=== PATIENT | male | born 1995 | race Caucasian/White ===

== ENCOUNTER → 2022-03-13 16:40 | Outpatient (BNVA) | payer OTHER, SELFPAY | PROVIDERS: Visit Provider Internal Medicine Pulmonary Disease | DX: J45.909 Unspecified asthma, uncomplicated (principal); R06.02 Shortness of breath | CPT/HCPCS: 36415; 82785; 85025; 86003 ==

== ENCOUNTER 2022-06-06 13:39 | Outpatient (CLI) | payer OTHER, SELFPAY ==
--- NOTE | 2022-06-06 08:47 | PFTS_ITS ---
Date of Study:06/07/22 Date of Dictation: MECHANICS: Forced vital capacity (FVC) is . Forced expiratory volume in one second (FEV1) is . FEV1/FVC is . FLOW VOLUME LOOP: . LUNG VOLUMES: Total lung capacity (TLC) is . Residual volume (RV) is . DIFFUSING CAPACITY FOR CARBON MONOXIDE: . INTERPRETATION: The pulmonary function tests are . mechanics and lung volumes. Gas exchange (DLCO) is . MTDD
== END 2022-06-06 13:40 | disposition home or self-care (01) ==
LOC: RT 13:40
PROVIDERS: Visit Provider Internal Medicine Pulmonary Disease
DX: J45.909 Unspecified asthma, uncomplicated (principal)
CPT/HCPCS: 94010; 94726; 94729

== ENCOUNTER → 2022-06-29 12:33 | Outpatient (BNVA) | payer OTHER, SELFPAY | PROVIDERS: PCP Family Medicine; Visit Provider Internal Medicine Pulmonary Disease | DX: J45.909 Unspecified asthma, uncomplicated (principal) | CPT/HCPCS: 85025 ==

== ENCOUNTER 2022-11-18 22:51 | Emergency (ER) | payer OTHER, SELFPAY ==
[2022-11-18 22:55] VITALS: BMI 29.5
--- NOTE | 2022-11-18 22:57 | XRR_ITS ---
PROCEDURE INFORMATION: Exam: XR Chest Exam date and time: 11/18/2022 11:15 PM Age: 27 years old Clinical indication: Other: Asthma TECHNIQUE: Imaging protocol: Radiologic exam of the chest. Views: 1 view. COMPARISON: No relevant prior studies available. FINDINGS: Lungs: Unremarkable. No consolidation. Pleural spaces: Unremarkable. No pleural effusion. No pneumothorax. Heart/Mediastinum: Unremarkable. No cardiomegaly. Bones/joints: Possible old left distal clavicle deformity. XR/XR chest 1V portable [id number] IMPRESSION: No acute findings.
--- NOTE | 2022-11-18 23:00 | W.ED.ASTHMA ---
Documented by User: SKYLER Marquez 11/19/22 00:15 HPI - Asthma General: Chief Complaint: Asthma Stated Complaint: asthma attack Time Seen by Provider: 11/18/22 22:52 History of Present Illness: 27-year-old male patient comes in today with complaints of shortness of breath. Patient was brought in by EMS and had been given DuoNeb x1 and 180 mg of Solu-Medrol. Patient was concerned due to some irritation of the throat and EMS was called. Patient recently started some Xolair treatment for every 2 weeks and was concerned he may be having a reaction to it. Associated symptoms: Deny fever(s) Review of Systems Const: Denies: fever(s) Resp: Reports: dyspnea [facility] PFSH: Medical History Asthma Family History Father Marfan syndrome Mother Asthma Social History Smoking and tobacco status: never smoked Second hand smoke exposure: Yes (brother in law) Physical Exam Const: COMMON NORMALS: alert HENMT: COMMON NORMALS: normocephalic HEAD & SCALP: normocephalic NOSE: Nasal discharge present THROAT: posterior oropharynx normal Neck/C-Spine: COMMON NORMALS: full ROM Resp: AUSCULTATION: diminished lung sounds Cardio: COMMON NORMALS: regular rate and regular rhythm RATE: regular rate RHYTHM: regular rhythm GI: COMMON NORMALS: non-tender Extremity: COMMON NORMALS: no pedal edema Neuro: SENSORIUM/ORIENTATION: Yes alert Skin: COMMON NORMALS: turgor normal GENERAL SKIN EXAM: turgor normal Course ED course: 1210, patient had significant improvement of symptoms. Lungs remain clear to auscultation. Nasal drainage and congestion was resolved. Patient reported feeling 100% better. Patient will be continued on prednisone and recommended to use diphenhydramine as needed for nasal drainage or congestion. Believe patient probably had asthma exacerbation due to a upper respiratory infection. Vital Signs: Vital signs: Vital Signs Pulse Rate 81 11/19/22 00:12 Respiratory Rate 21 H 11/19/22 00:12 Blood Pressure 106/50 11/19/22 00:12 Pulse Oximetry 96 11/19/22 00:12 Oxygen Delivery Me thod 11/18/22 23:20 MDM - Asthma Medical Decision Making 27-year-old male patient comes in today for concerns of asthma attack or allergic reaction. On exam patient had no wheezing in lung estevez, patient had significant amount of drainage in the nose. Posterior pharynx is open without any swelling or abnormality. Skin was warm and dry. Vital signs were normal except for some elevation in blood pressure. Differential diagnosis includes allergic reaction, asthma attack, respiratory failure. Patient improved with medical treatment in the emergency department. Reviewed exam with patient and family recommendations for continued treatment with oral prednisone and diphenhydramine. Family reported understanding and agreed to plan for treatment of URI and asthma exacerbation. Lab Data 11/18/22 23:00 11/18/22 23:00 Radiology Impressions Chest X-Ray 11/18/22 22:57 IMPRESSION: No acute findings. Laboratory Results WBC 9.1 10^3/uL (4.0-10.0) 11/18/22 23:00 RBC 4.67 10^6/uL (4.1-5.3) 11/18/22 23:00 Hgb 13.8 g/dL (11.7-16.6) 11/18/22 23:00 Hct 39.9 % (42.0-52.0) L 11/18/22 23:00 MCV 85.4 fl (80-94) 11/18/22 23:00 MCH 29.6 pg (28.0-34.0) 11/18/22 23: MCHC 34.6 g/dL (30.0-36.0) 11/18/22 23: RDW 11.3 % (12.1-15.1) L 11/18/22 23:00 Plt Count 317 10^3/cmm (130-400) 11/18/22 23:00 MPV 9.4 fL (7.4-10.4) 11/18/22 23:00 Neut % (Auto) 45.7 % 11/18/22 23:00 Lymph % (Auto) 38.7 % 11/18/22 23: Wayne % (Auto) 12.3 % 11/18/22 23:00 Eos % (Auto) 2.8 % 11/18/22 23:00 Baso % (Auto) 0.1 % 11/18/22 23:00 Neut # (Auto) 4.14 10^3/uL (1.8-7.7) 11/18/22 23:00 Lymph # (Auto) 3.5 10^3/uL (0.8-4.8) 11/18/22 23:00 Wayne # (Auto) 1.1 10^3/uL (0.2-0.9) H 11/18/22 23:00 Eos # (Auto) 0.3 10^3/uL (0.0-0.8) 11/18/22 23:00 Baso # (Auto) 0.0 10^3/uL (0.0-0.1) 11/18/22 23:00 Nucleated RBC % (auto) 0 % 11/18/22 23:00 Nucleated RBCs # 0.0 /100WBC 11/18/22 23:00 Sodium 133 mmol/L (136-145) L 11/18/22 23:00 Potassium 3.4 mmol/L (3.5-5.1) L 11/18/22 23:00 Chloride 98 mmol/L (98-107) 11/18/22 23:00 Carbon Dioxide 24 mmol/L (22-29) 11/18/22 23:00 Anion Gap 14.4 (5-19) 11/18/22 23:00 BUN 7 mg/dL (6-20) 11/18/22 23:00 Creatinine 0.9 mg/dL (0.7-1.2) 11/18/22 23:00 GFR Calculation 102.8 mL/min (90-130) 11/18/22 23:00 Glucose 105 mg/dL (65-115) 11/18/22 23:00 Calculated Osmolality 274 mOsm/kg (285-295) L 11/18/22 23:00 Calcium 9.3 mg/dL (8.5-10.5) 11/18/22 23:00 Total Bilirubin 0.3 mg/dL (0.15-1.2) 11/18/22 23:00 AST 22 U/L (0-40) 11/18/22 23:00 ALT 21 U/L (0-41) 11/18/22 23:00 Alkaline Phosphatase 86 U/L (40-130) 11/18/22 23:00 Total Protein 7.6 g/dL (6.6-8.7) 11/18/22 23:00 Albumin 4.5 g/dL (3.5-5.2) 11/18/22 23:00 Globulin 3.1 g/dL (1.3-4.6) 11/18/22 23:00 Discharge Plan Discharge Patient Disposition: Home Clinical Impression: Asthma with acute exacerbation URI (upper respiratory infection) Qualifiers: URI type: unspecified URI Qualified Code(s): J06.9 - Acute upper respiratory infection, unspecified Condition: Stable Prescriptions: New prednisone 20 mg tablet 40 mg PO DAILY Qty: 10 0RF No Action levalbuterol tartrate [Xopenex HFA] 45 mcg/actuation HFA aerosol inhaler 2 inh inhalation Q6H montelukast [Singulair] 10 mg tablet 10 mg PO DAILY fexofenadine [Devika Allergy] 60 mg tablet 60 mg PO BID trazodone 50 mg tablet 50 mg PO DAILY triamcinolone acetonide 0.1 % cream 1 applic topical DAILY Qty: 30 0RF nystatin 100,000 unit/gram cream 1 applic topical DAILY Qty: 30 0RF cetirizine 10 mg tablet 10 mg PO DAILY PRN Xolair 150 mg/mL syringe 225 mg SUBCUT .every 2 weeks Qty: 1 0RF levalbuterol HCl [Xopenex] 0.63 mg/3 mL solution for nebulization 0.63 mg inhalation TID Qty: 72 2RF epinephrine [EpiPen] 0.3 mg/0.3 mL auto-injector 0.3 mg IM Q4H PRN (Reason: anaphylaxis) Qty: 2 2RF Breztri Aerosphere 160-9-4.8 mcg/actuation HFA aerosol inhaler 2 inh inhalation BID Qty: 10.7 5RF Discharge Orders: Discharge ED (Routine); Ordered 11/19/22 Ordered By: Walter Champion Referrals: Antonella Oliveira DO [Primary Care Provider] - Discharge Diet: Usual diet Discharge Activity: Increase activity as tolerated Patient Instructions: Asthma (ED) Activity Restrictions/Additional Instructions: Home and rest. Continue routine care. Take prednisone 40 mg daily for the next 5 days. Use Benadryl as needed for nasal congestion and drainage. Drink plenty of water with medications. Follow-up with primary care in 2 days for recheck. Return to ED for new concerns or worsening symptoms. 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 Comprehensive Documented by User: Vidal Escobedo DO 11/19/22 01:08 HPI - Asthma General: Chief Complaint: Asthma Stated Complaint: asthma attack Time Seen by Provider: 11/18/22 22:52 [facility] PFSH: Medical History Asthma Family History Father Marfan syndrome Mother Asthma Social History Smoking and tobacco status: never smoked Second hand smoke exposure: Yes (brother in law) Course Vital Signs: Vital signs: Vital Signs Pulse Rate 81 11/19/22 00:12 Respiratory Rate 21 H 11/19/22 00:12 Blood Pressure 106/50 11/19/22 00:12 Pulse Oximetry 96 11/19/22 00:12 Oxygen Delivery Me thod 11/18/22 23:20 MDM - Asthma Medical Decision Making 27-year-old male patient comes in today for concerns of asthma attack or allergic reaction. On exam patient had no wheezing in lung estevez, patient had significant amount of drainage in the nose. Posterior pharynx is open without any swelling or abnormality. Skin was warm and dry. Vital signs were normal except for some elevation in blood pressure. Differential diagnosis includes allergic reaction, asthma attack, respiratory failure. Patient improved with medical treatment in the emergency department. Reviewed exam with patient and family recommendations for continued treatment with oral prednisone and diphenhydramine. Family reported understanding and agreed to plan for treatment of URI and asthma exacerbation. This patient was originally seen by SKYLER Bobby. I agree with his history, evaluation, and treatment. Lab Data 11/18/22 23:00 11/18/22 23:00 Radiology Impressions Chest X-Ray 11/18/22 22:57 IMPRESSION: No acute findings. Laboratory Results WBC 9.1 10^3/uL (4.0-10.0) 11/18/22 23:00 RBC 4.67 10^6/uL (4.1-5.3) 11/18/22 23:00 Hgb 13.8 g/dL (11.7-16.6) 11/18/22 23:00 Hct 39.9 % (42.0-52.0) L 11/18/22 23:00 MCV 85.4 fl (80-94) 11/18/22 23:00 MCH 29.6 pg (28.0-34.0) 11/18/22 23: MCHC 34.6 g/dL (30.0-36.0) 11/18/22 23:00 RDW 11.3 % (12.1-15.1) L 11/18/22 23:00 Plt Count 317 10^3/cmm (130-400) 11/18/22 23:00 MPV 9.4 fL (7.4-10.4) 11/18/22 23:00 Neut % (Auto) 45.7 % 11/18/22 23:00 Lymph % (Auto) 38.7 % 11/18/22 23:00 Wayne % (Auto) 12.3 % 11/18/22 23:00 Eos % (Auto) 2.8 % 11/18/22 23:00 Baso % (Auto) 0.1 % 11/18/22 23:00 Neut # (Auto) 4.14 10^3/uL (1.8-7.7) 11/18/22 23:00 Lymph # (Auto) 3.5 10^3/uL (0.8-4.8) 11/18/22 23:00 Wayne # (Auto) 1.1 10^3/uL (0.2-0.9) H 11/18/22 23:00 Eos # (Auto) 0.3 10^3/uL (0.0-0.8) 11/18/22 23:00 Baso # (Auto) 0.0 10^3/uL (0.0-0.1) 11/18/22 23:00 Nucleated RBC % (auto) 0 % 11/18/22 23:00 Nucleated RBCs # 0.0 /100WBC 11/18/22 23:00 Sodium 133 mmol/L (136-145) L 11/18/22 23:00 Potassium 3.4 mmol/L (3.5-5.1) L 11/18/22 23:00 Chloride 98 mmol/L (98-107) 11/18/22 23:00 Carbon Dioxide 24 mmol/L (22-29) 11/18/22 23:00 Anion Gap 14.4 (5-19) 11/18/22 23:00 BUN 7 mg/dL (6-20) 11/18/22 23:00 Creatinine 0.9 mg/dL (0.7-1.2) 11/18/22 23:00 GFR Calculation 102.8 mL/min (90-130) 11/18/22 23:00 Glucose 105 mg/dL (65-115) 11/18/22 23:00 Calculated Osmolality 274 mOsm/kg (285-295) L 11/18/22 23:00 Calcium 9.3 mg/dL (8.5-10.5) 11/18/22 23:00 Total Bilirubin 0.3 mg/dL (0.15-1.2) 11/18/22 23:00 AST 22 U/L (0-40) 11/18/22 23:00 ALT 21 U/L (0-41) 11/18/22 23:00 Alkaline Phosphatase 86 U/L (40-130) 11/18/22 23:00 Total Protein 7.6 g/dL (6.6-8.7) 11/18/22 23:00 Albumin 4.5 g/dL (3.5-5.2) 11/18/22 23:00 Globulin 3.1 g/dL (1.3-4.6) 11/18/22 23:00 Discharge Plan Discharge Patient Disposition: Home Clinical Impression: Asthma with acute exacerbation URI (upper respiratory infection) Qualifiers: URI type: unspecified URI Qualified Code(s): J06.9 - Acute upper respiratory infection, unspecified Condition: Stable Prescriptions: New prednisone 20 mg tablet 40 mg PO DAILY Qty: 10 0RF No Action levalbuterol tartrate [Xopenex HFA] 45 mcg/actuation HFA aerosol inhaler 2 inh inhalation Q6H montelukast [Singulair] 10 mg tablet 10 mg PO DAILY fexofenadine [Devika Allergy] 60 mg tablet 60 mg PO BID trazodone 50 mg tablet 50 mg PO DAILY triamcinolone acetonide 0.1 % cream 1 applic topical DAILY Qty: 30 0RF nystatin 100,000 unit/gram cream 1 applic topical DAILY Qty: 30 0RF cetirizine 10 mg tablet 10 mg PO DAILY PRN Xolair 150 mg/mL syringe 225 mg SUBCUT .every 2 weeks Qty: 1 0RF levalbuterol HCl [Xopenex] 0.63 mg/3 mL solution for nebulization 0.63 mg inhalation TID Qty: 72 2RF epinephrine [EpiPen] 0.3 mg/0.3 mL auto-injector 0.3 mg IM Q4H PRN (Reason: anaphylaxis) Qty: 2 2RF Breztri Aerosphere 160-9-4.8 mcg/actuation HFA aerosol inhaler 2 inh inhalation BID Qty: 10.7 5RF Discharge Orders: Discharge ED (Routine); Ordered 11/19/22 Ordered By: Walter Champion Referrals: Antonella Oliveira DO [Primary Care Provider] - Discharge Diet: Usual diet Discharge Activity: Increase activity as tolerated Patient Instructions: Asthma (ED) Activity Restrictions/Additional Instructions: Home and rest. Continue routine care. Take prednisone 40 mg daily for the next 5 days. Use Benadryl as needed for nasal congestion and drainage. Drink plenty of water with medications. Follow-up with primary care in 2 days for recheck. Return to ED for new concerns or worsening symptoms. Stand Alone Forms: Work/School Release Coding Level of Care Code ED Parking Enforcement Officer for Jessica Fwramirez Exam Comprehensive
[2022-11-18 23:09] LABS: Basophils % 0.1 %; Eosinophils # 0.3 10^3/uL (0.0-0.8); Eosinophils % 2.8 %; Hematocrit 39.9 % (42.0-52.0); Hemoglobin 13.8 g/dL (11.7-16.6); Lymphocytes # 3.5 10^3/uL (0.8-4.8); Lymphocytes % 38.7 %; Mean Corpuscular HGB Conc 34.6 g/dL (30.0-36.0); Mean Corpuscular Hemoglobin 29.6 pg (28.0-34.0); Mean Corpuscular Volume 85.4 fl (80-94); Mean Platelet Volume 9.4 fL (7.4-10.4); Monocytes # 1.1 10^3/uL (0.2-0.9); Monocytes % 12.3 %; Neutrophils # 4.14 10^3/uL (1.8-7.7); Neutrophils % 45.7 %; Nucleated Red Blood Cells % 0 %; Platelet Count 317 10^3/cmm (130-400); Red Blood Count 4.67 10^6/uL (4.1-5.3); Red Cell Distribution Width 11.3 % (12.1-15.1); White Blood Count 9.1 10^3/uL (4.0-10.0)
[2022-11-18] MEDS: diphenhydrAMINE 50 mg/mL SDV 1mL IVP (23:14)
[2022-11-18] MEDS: magnesium sulfate premix 2 GM/50 ML PIGGYBACK IV (23:15)
[2022-11-18] MEDS: ipratropium-albuterol 3 mL Neb INHALATION (23:18)
[2022-11-18 23:19] VITALS: BP 129/86; PULSE 77; RESP 13; O2SAT 100
[2022-11-18 23:20] VITALS: PULSE 80; RESP 14; O2SAT 93
[2022-11-18 23:28] LABS: Alanine Aminotransferase 21 U/L (0-41); Albumin Level 4.5 g/dL (3.5-5.2); Alkaline Phosphatase 86 U/L (40-130); Anion Gap 14.4 (5-19); Aspartate Amino Transferase 22 U/L (0-40); Blood Urea Nitrogen 7 mg/dL (6-20); Calcium 9.3 mg/dL (8.5-10.5); Carbon Dioxide 24 mmol/L (22-29); Chloride 98 mmol/L (98-107); Globulin 3.1 g/dL (1.3-4.6); Glomerular Filtration Rate 102.8 mL/min (90-130); Glucose 105 mg/dL (65-115); Osmolality Calculated 274 mOsm/kg (285-295); Potassium 3.4 mmol/L (3.5-5.1); Sodium 133 mmol/L (136-145); Total Bilirubin 0.3 mg/dL (0.15-1.2); Total Protein 7.6 g/dL (6.6-8.7)
[2022-11-19 00:12] VITALS: BP 106/50; PULSE 81; RESP 21; O2SAT 96
== END 2022-11-19 00:23 | disposition home or self-care (01) ==
PROVIDERS: Emergency Provider Nurse Practitioner Family; PCP Family Medicine
DX: J06.9 Acute upper respiratory infection, unspecified (principal); J45.901 Unspecified asthma with (acute) exacerbation
CPT/HCPCS: 71045; 80053; 85025; 94640; 96374; 96375; 99284; J1200; J3475

== ENCOUNTER 2022-11-24 19:13 | Emergency (ER) | payer OTHER, SELFPAY ==
[2022-11-24 19:23] VITALS: BP 145/84; PULSE 103; RESP 16; TEMP 36.8; O2SAT 97
[2022-11-24 20:03] VITALS: BP 98/59; PULSE 105; RESP 16; O2SAT 95
--- NOTE | 2022-11-24 20:13 | XRR_ITS ---
PROCEDURE INFORMATION: Exam: XR Chest Exam date and time: 11/24/2022 8:39 PM Age: 27 years old Clinical indication: Cough and shortness of breath; Additional info: Cough, shortness of breath, history of asthma TECHNIQUE: Imaging protocol: Radiologic exam of the chest. Views: 1 view. COMPARISON: CR (CHEST, ) 11/18/2022 11:15 PM FINDINGS: Lungs: Unremarkable. No consolidation. Pleural spaces: Unremarkable. No pleural effusion. No pneumothorax. Heart/Mediastinum: Unremarkable. No cardiomegaly. Bones/joints: Unremarkable. XR/XR chest 1V portable [id number] IMPRESSION: No acute findings.
[2022-11-24] MEDS: ketorolac 30 mg/mL INJ IVP (20:33)
[2022-11-24] MEDS: guaiFENesin 100 mg/5 mL UDC 10 mL 400 MG PO (20:35)
[2022-11-24 20:43] LABS: Basophils % 0.4 %; Hematocrit 40.3 % (42.0-52.0); Hemoglobin 13.5 g/dL (11.7-16.6); Lymphocytes # 0.9 10^3/uL (0.8-4.8); Lymphocytes % 8.9 %; Mean Corpuscular HGB Conc 33.5 g/dL (30.0-36.0); Mean Corpuscular Hemoglobin 29.4 pg (28.0-34.0); Mean Corpuscular Volume 87.8 fl (80-94); Mean Platelet Volume 9.3 fL (7.4-10.4); Monocytes # 0.7 10^3/uL (0.2-0.9); Monocytes % 6.5 %; Neutrophils # 8.42 10^3/uL (1.8-7.7); Neutrophils % 80.6 %; Nucleated Red Blood Cells % 0 %; Platelet Count 345 10^3/cmm (130-400); Red Blood Count 4.59 10^6/uL (4.1-5.3); Red Cell Distribution Width 11.9 % (12.1-15.1); White Blood Count 10.5 10^3/uL (4.0-10.0)
[2022-11-24 21:02] LABS: Anion Gap 13.9 (5-19); Blood Urea Nitrogen 14 mg/dL (6-20); Calcium 9.3 mg/dL (8.5-10.5); Carbon Dioxide 27 mmol/L (22-29); Chloride 101 mmol/L (98-107); Glomerular Filtration Rate 137.4 mL/min (90-130); Glucose 128 mg/dL (65-115); Osmolality Calculated 288 mOsm/kg (285-295); Potassium 3.9 mmol/L (3.5-5.1); Sodium 138 mmol/L (136-145)
--- NOTE | 2022-11-24 21:38 | W.ED.SOB ---
Documented by User: DB Ponce 11/24/22 21:46 HPI - SOB/Dyspnea General: Chief Complaint: Shortness of Breath/Dyspnea Stated Complaint: sob Time Seen by Provider: 11/24/22 19:43 History of Present Illness: HPI Narrative: Austin Yi is a 27-year-old male that presents to the emergency department with complaints of increased shortness of breath and cough. Patient reports symptoms began earlier in the week and has been evaluated multiple times by PCP and urgent care. He has been started on steroids for his asthma flare. He has been using his nebulizer treatments without improvement in symptoms Report hoarse voice, sore throat, sinus congestion. Associated symptoms: Reports chest congestion; Deny abdominal pain, chest pain, dizziness, extremity pain, fever(s), nausea, orthopnea, palpitations, polydipsia, polyuria or vomiting Review of Systems General: Reports: 10 or more systems reviewed and unremarkable except in HPI and below Const: Denies: fever(s), chills, change in appetite, change in weight, fatigue or malaise Eyes: Denies: change in vision, eye discomfort, eye discharge or eye redness ENMT: Reports: throat pain, enlarged tonsils, hoarseness, nasal discharge, nasal congestion and post nasal drip; Denies: odynophagia, ear or mastoid pain, ear discharge, change in hearing, tinnitus or sinus pain Card: Denies: chest pain, palpitations, irregular heart rhythm, edema, dyspnea on exertion, orthopnea or leg pain with exertion Resp: Reports: dyspnea, non-productive cough and chest congestion; Denies: productive cough, wheezing or stridor GI: Denies: abdominal pain, nausea, vomiting, dysphagia, diarrhea, constipation, bloating, GI cramping or hematochezia : Denies: flank pain, dysuria, urinary frequency, urinary urgency, urinary hesitancy, oliguria or hematuria Musc: Denies: neck pain, back pain, extremity pain, joint pain, joint swelling, joint redness, joint warmth or muscle weakness Skin/Breast: Denies: rash, pruritus, erythema, photosensitivity or new lesions Neuro: Denies: headache(s), numbness in extremities, weakness in extremities, sensory changes, lack of coordination, difficulty walking, frequent falls, dizziness, confusion, Slurred speech present, difficulty communicating thoughts, seizure-like activity or involuntary movements Endo: Denies: polyuria, polydipsia or tired all the time Hussain/Lymph: Denies: easy bruising or easy bleeding PFSH ED PFSH: Medical History Asthma Family History Father Marfan syndrome Mother Asthma Social History Smoking and tobacco status: never smoked Second hand smoke exposure: Yes (brother in law) Physical Exam Const: COMMON NORMALS: no acute distress, patient oriented x3 and alert GENERAL APPEARANCE: cooperative ORIENTATION/CONSCIOUSNESS: Yes awake, Yes oriented to person, Yes oriented to place and Yes oriented to time HENMT: COMMON NORMALS: normocephalic and atraumatic HEAD & SCALP: normocephalic and atraumatic FACE & SINUS: normal facial exam MOUTH: Normal oral and palatal mucosa present THROAT: posterior oropharynx normal Eye: COMMON NORMALS: Equal, round and reactive pupils present, EOMs intact bilaterally, conjunctivae normal and no scleral icterus GENERAL EYE: appearance normal, both eyes and all related structures ALIGNMENT: Yes alignment normal PERIORBITAL: periorbital findings normal CONJUNCTIVA: Yes conjunctivae normal PUPIL: Yes Equal, round and reactive pupils present Neck/C-Spine: COMMON NORMALS: full ROM GENERAL: Yes normal visual inspection Lymph: LYMPHATIC: no lymphadenopathy noted Chest: COMMONS NORMALS: normal inspection of the chest Breast/axilla inspection: Yes no chest deformity, asymmetry, normal contours, no nodules, masses, tenderness Resp: COMMON NORMALS: normal respiratory effort, No retractions, No use of accessory muscles and clear to auscultation bilaterally EFFORT & INSPECTION: Yes able to speak in complete sentences and Yes symmetric chest movement AUSCULTATION: clear to auscultation bilaterally Cardio: COMMON NORMALS: regular rate, regular rhythm and Peripheral pulses 2+ throughout RATE: regular rate RHYTHM: regular rhythm PERIPHERAL PULSES: Peripheral pulses 2+ throughout GI: COMMON NORMALS: Normal to inspection, nondistended, normoactive bowel sounds present, Soft to palpation, non-tender and No hepatosplenomegaly present INSPECTION: Yes normal to inspection AUSCULTATION: Yes normoactive bowel sounds PALPATION: Yes Soft to palpation and Yes No hepatosplenomegaly present RECTAL EXAM: Yes deferred Extremity: COMMON NORMALS: normal to inspection GENERAL: Yes normal exam except as noted Neuro: COMMON NORMALS: patient oriented x3 SENSORIUM/ORIENTATION: Yes alert, Yes oriented to person, Yes oriented to place and Yes oriented to time CRANIAL NERVES: Yes CN normal except as noted Psych: COMMON NORMALS: mental status grossly normal, Normal thought process present, cooperative, activity/motor behavior normal, denies homicidal ideation and denies suicidal ideation THOUGHT PROCESS: Normal thought process present Skin: COMMON NORMALS: no rashes or lesions noted, no wounds and turgor normal GENERAL SKIN EXAM: no rashes or lesions noted and turgor normal Course Vital Signs: Vital signs: Vital Signs Temperature 98.2 F 11/24/22 19:23 Pulse Rate 105 H 11/24/22 20:03 Respiratory Rate 16 11/24/22 20:03 Blood Pressure 98/59 11/24/22 20:03 Pulse Oximetry 95 11/24/22 20:03 Oxygen Delivery Me thod 11/24/22 19:23 MDM - SOB/Dyspnea Medical Decision Making Patient was evaluated in the emergency department with complaints of chest congestion, sore throat, and other symptoms of URI. He has been seen multiple times by PCP and urgent care and had previously been diagnosed with asthma exacerbation. Patient is in the emergency department and has no evidence of wheezes, stridor, obstruction, coarse breath sounds Rales or rhonchi. He has already started steroids. Here in the emergency department I obtained an XR of his chest which was negative for acute finding. I did treat him with guaifenesin and Toradol. His symptoms did greatly improve. I am going to discharge him home with Tessalon Perles, guaifenesin, Toradol as well as prescription of Zyrtec and Flonase. Discussed findings and plan with family and they are agreeable. Lab Data 11/24/22 20:37 11/24/22 20:37 Labs/Radiology: Radiology Impressions Chest X-Ray 11/24/22 20:13 IMPRESSION: No acute findings. Laboratory Results WBC 10.5 10^3/uL (4.0-10.0) H 11/24/22 20:37 RBC 4.59 10^6/uL (4.1-5.3) 11/24/22 20:37 Hgb 13.5 g/dL (11.7-16.6) 11/24/22 20: Hct 40.3 % (42.0-52.0) L 11/24/22 20: MCV 87.8 fl (80-94) 11/24/22 20: MCH 29.4 pg (28.0-34.0) 11/24/22 20: MCHC 33.5 g/dL (30.0-36.0) 11/24/22 20: RDW 11.9 % (12.1-15.1) L 11/24/22 20: Plt Count 345 10^3/cmm (130-400) 11/24/22 20: MPV 9.3 fL (7.4-10.4) 11/24/22 20: Neut % (Auto) 80.6 % 11/24/22 20: Lymph % (Auto) 8.9 % 11/24/22 20: [place] % (Auto) 6.5 % 11/24/22 20:37 Eos % (Auto) 0.0 % 11/24/22 20:37 Baso % (Auto) 0.4 % 11/24/22 20: Neut # (Auto) 8.42 10^3/uL (1.8-7.7) H 11/24/22 20:37 Lymph # (Auto) 0.9 10^3/uL (0.8-4.8) 11/24/22 20: [place] # (Auto) 0.7 10^3/uL (0.2-0.9) 11/24/22 20:37 Eos # (Auto) 0.0 10^3/uL (0.0-0.8) 11/24/22 20: Baso # (Auto) 0.0 10^3/uL (0.0-0.1) 11/24/22 20: Nucleated RBC % (auto) 0 % 11/24/22 20: Nucleated RBCs # 0.0 /100WBC 11/24/22 20: Sodium 138 mmol/L (136-145) 11/24/22 20: Potassium 3.9 mmol/L (3.5-5.1) 02/11/23 20:37 Chloride 101 mmol/L (98-107) 11/24/22 20:37 Carbon Dioxide 27 mmol/L (22-29) 11/24/22 20:37 Anion Gap 13.9 (5-19) 11/24/22 20:37 BUN 14 mg/dL (6-20) 11/24/22 20:37 Creatinine 0.7 mg/dL (0.7-1.2) 11/24/22 20:37 GFR Calculation 137.4 mL/min (90-130) H 11/24/22 20:37 Glucose 128 mg/dL (65-115) H 11/24/22 20:37 Calculated Osmolality 288 mOsm/kg (285-295) 11/24/22 20:37 Calcium 9.3 mg/dL (8.5-10.5) 11/24/22 20:37 Discharge Plan Discharge Patient Disposition: Home Clinical Impression: URI (upper respiratory infection) Condition: Stable Prescriptions: New benzonatate 100 mg capsule 100 mg PO BID PRN (Reason: cough) Qty: 20 0RF guaifenesin 600 mg tablet extended release 12hr 600 mg PO Q12H PRN (Reason: congestion) Qty: 14 0RF Flonase Allergy Relief 50 mcg/actuation spray,suspension 2 spray intranasal DAILY PRN (Reason: nasal congestion) Qty: 16 0RF Rx Instructions: administer into each nostril Zyrtec 10 mg capsule 10 mg PO DAILY PRN (Reason: allergy symptoms) Qty: 30 0RF ketorolac 10 mg tablet 10 mg PO TID 5 Days Qty: 15 0RF No Action levalbuterol tartrate [Xopenex HFA] 45 mcg/actuation HFA aerosol inhaler 2 inh inhalation Q6H montelukast [Singulair] 10 mg tablet 10 mg PO DAILY fexofenadine [Devika Allergy] 60 mg tablet 60 mg PO BID trazodone 50 mg tablet 50 mg PO DAILY triamcinolone acetonide 0.1 % cream 1 applic topical DAILY Qty: 30 0RF nystatin 100,000 unit/gram cream 1 applic topical DAILY Qty: 30 0RF cetirizine 10 mg tablet 10 mg PO DAILY PRN Xolair 150 mg/mL syringe 225 mg SUBCUT .every 2 weeks Qty: 1 0RF levalbuterol HCl [Xopenex] 0.63 mg/3 mL solution for nebulization 0.63 mg inhalation TID Qty: 72 2RF epinephrine [EpiPen] 0.3 mg/0.3 mL auto-injector 0.3 mg IM Q4H PRN (Reason: anaphylaxis) Qty: 2 2RF Breztri Aerosphere 160-9-4.8 mcg/actuation HFA aerosol inhaler 2 inh inhalation BID Qty: 10.7 5RF azithromycin [Zithromax Z-Corey] 250 mg tablet See Rx Instructions PO .COMPLEX Qty: 6 0RF Rx Instructions: For 250 mg dose pack: take 500 mg today (day 1), then 250 mg for 4 days (days 2-5) PO prednisone 20 mg tablet 40 mg PO DAILY Qty: 10 0RF Discharge Orders: Discharge ED (Routine); Ordered 11/24/22 Ordered By: Hali Block Referrals: Antonella Oliveira DO [Primary Care Provider] - Discharge Diet: Advance as tolerated Discharge Activity: Resume usual activity Patient Instructions: Pain Management, Upper Respiratory Infection - Adult Activity Restrictions/Additional Instructions: The guaifenesin is a cough expectorant. You will need to drink plenty of fluids to thin out the secretions. This medication will help you cough it out. The Tessalon Perles is a cough suppressant. You can use this at night. The Flonase is a nasal steroid that will help decrease the histamine response that may trigger some of your allergy or respiratory symptoms. The Zyrtec works like Singulair does. If you have been on Singulair for long this medication might help in place of Singulair Practice good pulmonary hygiene. Avoid irritants like nicotine, smoke. Return to the emergency department for new concerning or worsening symptoms Coding Level of Care Code ED Health And Nutrition Specialist for Chg Fwd Documented by User: Latrell Tesfaye DO 02/14/23 06:39 HPI - SOB/Dyspnea General: Chief Complaint: Shortness of Breath/Dyspnea Stated Complaint: sob Time Seen by Provider: 11/24/22 19:43 [facility] ED PFSH: Medical History Asthma Family History Father Marfan syndrome Mother Asthma Social History Smoking and tobacco status: never smoked Second hand smoke exposure: Yes (brother in law) Course Vital Signs: Vital signs: Vital Signs Temperature 98.2 F 11/24/22 19:23 Pulse Rate 105 H 11/24/22 20:03 Respiratory Rate 16 11/24/22 20:03 Blood Pressure 98/59 11/24/22 20:03 Pulse Oximetry 95 11/24/22 20:03 Oxygen Delivery Me thod 11/24/22 19:23 MDM - SOB/Dyspnea Medical Decision Making Patient was evaluated in the emergency department with complaints of chest congestion, sore throat, and other symptoms of URI. He has been seen multiple times by PCP and urgent care and had previously been diagnosed with asthma exacerbation. Patient is in the emergency department and has no evidence of wheezes, stridor, obstruction, coarse breath sounds Rales or rhonchi. He has already started steroids. Here in the emergency department I obtained an XR of his chest which was negative for acute finding. I did treat him with guaifenesin and Toradol. His symptoms did greatly improve. I am going to discharge him home with Tessalon Perles, guaifenesin, Toradol as well as prescription of Zyrtec and Flonase. Discussed findings and plan with family and they are agreeable. Chart reviewed and patient discussed with midlevel. Agree with assessment and plan. Lab Data 11/24/22 20:37 11/24/22 20:37 Labs/Radiology: Radiology Impressions Chest X-Ray 11/24/22 20:13 IMPRESSION: No acute findings. Laboratory Results WBC 10.5 10^3/uL (4.0-10.0) H 11/24/22 20:37 RBC 4.59 10^6/uL (4.1-5.3) 11/24/22 20:37 Hgb 13.5 g/dL (11.7-16.6) 11/24/22 20:37 Hct 40.3 % (42.0-52.0) L 11/24/22 20: MCV 87.8 fl (80-94) 11/24/22 20:37 MCH 29.4 pg (28.0-34.0) 11/24/22 20: MCHC 33.5 g/dL (30.0-36.0) 11/24/22 20: RDW 11.9 % (12.1-15.1) L 11/24/22 20:37 Plt Count 345 10^3/cmm (130-400) 11/24/22 20: MPV 9.3 fL (7.4-10.4) 11/24/22 20: Neut % (Auto) 80.6 % 11/24/22 20: Lymph % (Auto) 8.9 % 11/24/22 20: [place] % (Auto) 6.5 % 11/24/22 20: Eos % (Auto) 0.0 % 11/24/22 20:37 Baso % (Auto) 0.4 % 11/24/22 20:37 Neut # (Auto) 8.42 10^3/uL (1.8-7.7) H 11/24/22 20: Lymph # (Auto) 0.9 10^3/uL (0.8-4.8) 11/24/22 20:37 [place] # (Auto) 0.7 10^3/uL (0.2-0.9) 11/24/22 20: Eos # (Auto) 0.0 10^3/uL (0.0-0.8) 11/24/22 20:37 Baso # (Auto) 0.0 10^3/uL (0.0-0.1) 11/24/22 20: Nucleated RBC % (auto) 0 % 11/24/22 20: Nucleated RBCs # 0.0 /100WBC 11/24/22 20:37 Sodium 138 mmol/L (136-145) 11/24/22 20: Potassium 3.9 mmol/L (3.5-5.1) 11/24/22 20:37 Chloride 101 mmol/L (98-107) 11/24/22 20:37 Carbon Dioxide 27 mmol/L (22-29) 11/24/22 20:37 Anion Gap 13.9 (5-19) 11/24/22 20:37 BUN 14 mg/dL (6-20) 11/24/22 20:37 Creatinine 0.7 mg/dL (0.7-1.2) 11/24/22 20:37 GFR Calculation 137.4 mL/min (90-130) H 11/24/22 20:37 Glucose 128 mg/dL (65-115) H 11/24/22 20:37 Calculated Osmolality 288 mOsm/kg (285-295) 11/24/22 20:37 Calcium 9.3 mg/dL (8.5-10.5) 11/24/22 20:37 Discharge Plan Discharge Patient Disposition: Home Clinical Impression: URI (upper respiratory infection) Condition: Stable Prescriptions: New benzonatate 100 mg capsule 100 mg PO BID PRN (Reason: cough) Qty: 20 0RF guaifenesin 600 mg tablet extended release 12hr 600 mg PO Q12H PRN (Reason: congestion) Qty: 14 0RF Flonase Allergy Relief 50 mcg/actuation spray,suspension 2 spray intranasal DAILY PRN (Reason: nasal congestion) Qty: 16 0RF Rx Instructions: administer into each nostril Zyrtec 10 mg capsule 10 mg PO DAILY PRN (Reason: allergy symptoms) Qty: 30 0RF ketorolac 10 mg tablet 10 mg PO TID 5 Days Qty: 15 0RF No Action levalbuterol tartrate [Xopenex HFA] 45 mcg/actuation HFA aerosol inhaler 2 inh inhalation Q6H montelukast [Singulair] 10 mg tablet 10 mg PO DAILY fexofenadine [Devika Allergy] 60 mg tablet 60 mg PO BID trazodone 50 mg tablet 50 mg PO DAILY triamcinolone acetonide 0.1 % cream 1 applic topical DAILY Qty: 30 0RF nystatin 100,000 unit/gram cream 1 applic topical DAILY Qty: 30 0RF cetirizine 10 mg tablet 10 mg PO DAILY PRN Xolair 150 mg/mL syringe 225 mg SUBCUT .every 2 weeks Qty: 1 0RF levalbuterol HCl [Xopenex] 0.63 mg/3 mL solution for nebulization 0.63 mg inhalation TID Qty: 72 2RF epinephrine [EpiPen] 0.3 mg/0.3 mL auto-injector 0.3 mg IM Q4H PRN (Reason: anaphylaxis) Qty: 2 2RF Breztri Aerosphere 160-9-4.8 mcg/actuation HFA aerosol inhaler 2 inh inhalation BID Qty: 10.7 5RF azithromycin [Zithromax Z-Corey] 250 mg tablet See Rx Instructions PO .COMPLEX Qty: 6 0RF Rx Instructions: For 250 mg dose pack: take 500 mg today (day 1), then 250 mg for 4 days (days 2-5) PO prednisone 20 mg tablet 40 mg PO DAILY Qty: 10 0RF Discharge Orders: Discharge ED (Routine); Ordered 11/24/22 Ordered By: aHli Block Referrals: Antonella Oliveira DO [Primary Care Provider] - Discharge Diet: Advance as tolerated Discharge Activity: Resume usual activity Patient Instructions: Pain Management, Upper Respiratory Infection - Adult Activity Restrictions/Additional Instructions: The guaifenesin is a cough expectorant. You will need to drink plenty of fluids to thin out the secretions. This medication will help you cough it out. The Tessalon Perles is a cough suppressant. You can use this at night. The Flonase is a nasal steroid that will help decrease the histamine response that may trigger some of your allergy or respiratory symptoms. The Zyrtec works like Singulair does. If you have been on Singulair for long this medication might help in place of Singulair Practice good pulmonary hygiene. Avoid irritants like nicotine, smoke. Return to the emergency department for new concerning or worsening symptoms Coding Level of Care Code ED Health And Nutrition Specialist for Jessica Steward
== END 2022-11-24 21:53 | disposition home or self-care (01) ==
PROVIDERS: Emergency Provider Nurse Practitioner; PCP Family Medicine
DX: J06.9 Acute upper respiratory infection, unspecified (principal)
CPT/HCPCS: 71045; 80048; 85025; 96374; 99284; J1885

== ENCOUNTER 2024-06-12 03:00 | Emergency (ER) | payer OTHER, SELFPAY ==
[2024-06-12] VITALS (7 sets, daily range): BP systolic 95–149; BP diastolic 64–103; PULSE 70–101; RESP 14–24; TEMP 36.6; O2SAT 96–99; BMI 35.4
--- NOTE | 2024-06-12 03:07 | ECG_ITS ---
[facility] Test Date: 2024-06-12 Pat Name: Austin Yi Department: Room: Gender: Male Branch Operations Specialist: : 1995 Requested By: Juan Dorsey Order Number: [id number] Levin MD: Rosemarie Pena M.D. Measurements Intervals [place] Rate: 96 P: 47 NM: 143 QRS: 47 QRSD: 94 T: 45 QT: 341 QTc: 432 Interpretive Statements SINUS RHYTHM POSSIBLE RIGHT ATRIAL ENLARGEMENT [0.25mV P-WAVE] POSSIBLE LEFT ATRIAL ENLARGEMENT [-0.1mV P-WAVE IN V1/V2] No previous ECG available for comparison Electronically Signed On 06-12-2024 18:15:01 CDT by Rosemarie Pena M.D. [id number]
[2024-06-12 03:18] LABS: Basophils % 0.5 %; Eosinophils # 0.1 10^3/uL (0.0-0.8); Hematocrit 41.9 % (37-53); Lymphocytes % 46.3 %; Mean Corpuscular HGB Conc 34.6 g/dL (30-55); Mean Corpuscular Volume 86.6 fl (82-101); Mean Platelet Volume 9.1 fL (7.4-10.4); Monocytes # 0.6 10^3/uL (0.2-0.9); Monocytes % 9.6 %; Neutrophils # 2.68 10^3/uL (1.8-7.7); Neutrophils % 41.3 %; Nucleated Red Blood Cells % 0 %; Platelet Count 300 10^3/cmm (157-399); Red Blood Count 4.84 10^6/uL (3.85-5.65); White Blood Count 6.48 10^3/uL (3.29-11.43)
--- NOTE | 2024-06-12 03:22 | ED_ITS ---
HPI - Anxiety 2 General: Chief Complaint: Anxiety Stated Complaint: Anxiety,SOB Time Seen by Provider: 06/12/24 03:08 History of Present Illness: 28-year-old male presents with anxiety a nd difficulty breathing. Does have a history of asthma. Has also been drinking tonight. Has been under some stressors tonight as his divorce just finalized tonight. Family states that he had 1 beer and 1 mixed drink and then started having difficulty breathing. He does appear to be intoxicated. He is speaking full sentences. Pulse ox is 94% on room air but he is very somnolent. States that he is anxious but he is not able to keep his eyes open long enough to speak to me without falling asleep again. Related Data Home Medications Medication Instructions Recorded Confirmed levalbuterol tartrate 45 2 inh inhalation Q6H 03/13/22 02/03/24 mcg/actuation aerosol inhaler (Xopenex HFA) trazodone 50 mg tablet 50 mg PO DAILY 03/13/22 02/03/24 cetirizine 10 mg tablet 10 mg PO DAILY PRN 10/26/22 02/03/24 cetirizine 10 mg capsule (Zyrtec) 10 mg PO DAILY allergy symptoms 09/04/23 02/03/24 clindamycin HCl 300 mg capsule 300 mg PO TID 09/04/23 02/03/24 fexofenadine 60 mg tablet (Devika 60 mg PO BID PRN 09/04/23 02/03/24 Allergy) Previous Rx's Medication Instructions Recorded nystatin 100,000 unit/gram topical 1 applic topical DAILY #30 grams 03/29/22 cream triamcinolone acetonide 0.1 % 1 applic topical DAILY #30 grams 03/29/22 topical cream levalbuterol HCl 0.63 mg/3 mL 0.63 mg (3 mL) inhalation TID #72 05/14/22 solution for nebulization (Xopenex) mL epinephrine 0.3 mg/0.3 mL 0.3 mg (0.3 mL) IM Q4H PRN 07/17/22 injection, auto-injector (EpiPen) anaphylaxis #2 ea benzonatate 100 mg capsule 100 mg PO BID PRN cough #20 caps 11/24/22 fluticasone propionate 50 2 spray intranasal DAILY PRN nasal 11/24/22 mcg/actuation nasal congestion #16 grams spray,suspension (Flonase Allergy Relief) guaifenesin 600 mg tablet, 600 mg PO Q12H PRN congestion #14 11/24/22 extended release 12 hr tabs budesonide-formoterol HFA 160 2 puff inhalation BID #10.2 grams 03/01/23 mcg-4.5 mcg/actuation aerosol inhaler (Symbicort) omalizumab 150 mg/mL subcutaneous 225 mg (1.5 mL) SUBCUT .every 2 01/21/24 syringe (Xolair) weeks #1 mL Allergies Allergy/AdvReac Type Severity Reaction Status Date / Time Penicillins Allergy Unknown Unknown Verified 02/03/24 09:53 PFSH ED 2 PFSH: Medical History Asthma Family History Father Marfan syndrome Mother Asthma Social History Smoking and tobacco/nicotine status: never used tobacco/nicotine Second hand smoke exposure: Yes (brother in law) Physical Exam 2 Const: COMMON NORMALS: no acute distress, average body habitus, patient oriented x3, no limitations, healthy appearing, alert and well nourished Neck/C-Spine: COMMON NORMALS: no JVD Resp: COMMON NORMALS: normal respiratory effort, No retractions, No use of accessory muscles, clear to auscultation bilaterally and percussion normal A USCULTATION: clear to auscultation bilaterally PERCUSSION: percussion normal Cardio: COMMON NORMALS: no JVD, regular rate, regular rhythm, S1 normal heart sound present, S2 normal heart sound present, No gallops present (Cardio), No clicks present (Cardio), No murmurs present (Cardio), No rub (Cardio) and Peripheral pulses 2+ throughout RATE: regular rate RHYTHM: regular rhythm HEART SOUNDS: S1 normal heart sound present and S2 normal heart sound present PERIPHERAL PULSES: Peripheral pulses 2+ throughout GI: COMMON NORMALS: Normal to inspection, nondistended, normoactive bowel sounds present, Soft to palpation, non-tender, No hepatosplenomegaly present, no masses and no bruits PALPATION: Yes Soft to palpation and Yes No hepatosplenomegaly present Neuro: COMMON NORMALS: patient oriented x3 SENSORIUM/ORIENTATION: Yes alert Course 2 Vital Signs: Vital signs: Vital Signs Temperature 98 F 06/12/24 03:03 Pulse Rate 95 06/12/24 04:00 Respiratory Rate 14 06/12/24 04:00 Blood Pressure 147/79 06/12/24 03:37 Pulse Oximetry 97 06/12/24 04:00 Oxygen Delivery Me thod Nasal Cannula 06/12/24 04:00 Oxygen Flow Rate 2 06/12/24 04:00 MDM - Anxiety Medical Decision Making 28-year-old male presents with anxiety and difficulty breathing. Does have a history of asthma. Has also been drinking tonight. Has been under some stressors tonight as his divorce just finalized tonight. Family states that he had 1 beer and 1 mixed drink and then started having difficulty breathing. He does appear to be intoxicated. He is speaking full sentences. Pulse ox is 94% on room air but he is very somnolent. States that he is anxious but he is not able to keep his eyes open long enough to speak to me without falling asleep again. EKG with nonspecific ST and T wave changes. No acute ischemic changes. Patient just appears to be intoxicated. Lungs are bilaterally clear without any wheezing he given DuoNeb treatment to see if this helps with his shortness of breath. Patient feeling better after treatment and time. Patient is now much more awake and able to converse and is not short of breath and is not hypoxic. Suspect symptoms secondary to alcohol mixed with asthma and anxiety. Lab Data 06/12/24 03:11 06/12/24 03:11 Laboratory Results WBC 6.48 10^3/uL (3.29-11.43) 06/12/24 03:11 RBC 4.84 10^6/uL (3.85-5.65) 06/12/24 03:11 Hgb 14.50 g/dL (11.27-16.99) 06/12/24 03:11 Hct 41.9 % (37-53) 06/12/24 03:11 MCV 86.6 fl (82-101) 06/12/24 03:11 MCH 30.0 pg (27-33) 06/12/24 03:11 MCHC 34.6 g/dL (30-55) 06/12/24 03:11 RDW 12.0 % (12.1-15.1) L 06/12/24 03:11 Plt Count 300 10^3/cmm (157-399) 06/12/24 03:11 MPV 9.1 fL (7.4-10.4) 06/12/24 03:11 Neut % (Auto) 41.3 % 06/12/24 03:11 Lymph % (Auto) 46.3 % 06/12/24 03:11 [place] % (Auto) 9.6 % 06/12/24 03:11 Eos % (Auto) 2.0 % 06/12/24 03:11 Baso % (Auto) 0.5 % 06/12/24 03:11 Neut # (Auto) 2.68 10^3/uL (1.8-7.7) 06/12/24 03:11 Lymph # (Auto) 3.0 10^3/uL (0.8-4.8) 06/12/24 03:11 [place] # (Auto) 0.6 10^3/uL (0.2-0.9) 06/12/24 03:11 Eos # (Auto) 0.1 10^3/uL (0.0-0.8) 06/12/24 03:11 Baso # (Auto) 0.0 10^3/uL (0.0-0.1) 06/12/24 03:11 Nucleated RBC % (auto) 0 % 06/12/24 03:11 Nucleated RBCs # 0.0 /100WBC 06/12/24 03:11 Sodium 139 mmol/L (136-145) 06/12/24 03:11 Potassium 3.4 mmol/L (3.5-5.1) L 06/12/24 03:11 Chloride 102 mmol/L (98-107) 06/12/24 03:11 Carbon Dioxide 20 mmol/L (22-29) L 06/12/24 03:11 Anion Gap 20.4 (5-19) H 06/12/24 03:11 BUN 11 mg/dL (6-20) 06/12/24 03:11 Creatinine 0.9 mg/dL (0.7-1.2) 06/12/24 03:11 GFR Calculation 102.0 mL/min (90-130) 06/12/24 03:11 Glucose 113 mg/dL (65-115) 06/12/24 03:11 Calculated Osmolality 288 mOsm/kg (285-295) 06/12/24 03:11 Calcium 9.0 mg/dL (8.5-10.5) 06/12/24 03:11 Total Bilirubin 0.5 mg/dL (0.15-1.2) 06/12/24 03:11 AST 25 U/L (0-40) 06/12/24 03:11 ALT 26 U/L (0-41) 06/12/24 03:11 Alkaline Phosphatase 66 U/L (40-130) 06/12/24 03:11 Total Protein 7.5 g/dL (6.6-8.7) 06/12/24 03:11 Albumin 4.7 g/dL (3.5-5.2) 06/12/24 03:11 Globulin 2.8 g/dL (1.3-4.6) 06/12/24 03:11 Urine Color Yellow (Yellow) 06/12/24 03:30 Urine Appearance Clear (CLEAR) 06/12/24 03:30 Urine pH 6.5 (5-7) 06/12/24 03:30 Ur Specific [place] 1.008 (1.005-1.030) 06/12/24 03:30 Urine Protein Negative (Negative) 06/12/24 03:30 Urine Glucose (UA) Negative (Normal) 06/12/24 03:30 Urine Ketones Negative (Negative) 06/12/24 03:30 Urine Blood Negative (Negative) 06/12/24 03:30 Urine Nitrate Negative (Negative) 06/12/24 03:30 Urine Bilirubin Negative (Negative) 06/12/24 03:30 Urine Urobilinogen 1.0 mg/dL (Negative) 06/12/24 03:30 Ur Leukocyte Esterase Negative (Negative) 06/12/24 03:30 Urine RBC 0-2 /hpf (0-2) 06/12/24 03:30 Urine WBC 0-5 /hpf (0-5) 06/12/24 03:30 Ur Squamous Epith Cells 0-5 /hpf (0-5) 06/12/24 03:30 Amorphous Sediment Not Reportable 06/12/24 03:30 Urine Bacteria None seen /hpf (NONE) 06/12/24 03:30 Hyaline Casts 0-4 /lpf H 06/12/24 03:30 Urine Opiates Screen Negative ng/mL (Negative) 06/12/24 03:30 Ur Barbiturates Screen Negative ng/mL (Negative) 06/12/24 03:30 Ur Phencyclidine Scrn Negative ng/mL (Negative) 06/12/24 03:30 Ur Amphetamines Screen Negative ng/mL (Negative) 06/12/24 03:30 U Benzodiazepines Scrn Negative ng/mL (Negative) 06/12/24 03:30 Urine Cocaine Screen Negative ng/mL (Negative) 06/12/24 03:30 U Marijuana (THC) Screen Negative ng/mL (Negative) 06/12/24 03:30 Ethyl Alcohol 150 mg/dL (0-10) H 06/12/24 03:11 No radiology studies performed this visit Discharge Plan Discharge Patient Disposition: Home Clinical Impression: Alcohol intoxication, Asthma, Anxiety Condition: Stable Prescriptions: No Action levalbuterol tartrate [Xopenex HFA] 45 mcg/actuation HFA aerosol inhaler 2 inh inhalation Q6H trazodone 50 mg tablet 50 mg PO DAILY fexofenadine [Devika Allergy] 60 mg tablet 60 mg PO BID PRN triamcinolone acetonide 0.1 % cream 1 applic topical DAILY Qty: 30 0RF nystatin 100,000 unit/gram cream 1 applic topical DAILY Qty: 30 0RF cetirizine 10 mg tablet 10 mg PO DAILY PRN budesonide-formoterol [Symbicort] 160-4.5 mcg/actuation HFA aerosol inhaler 2 puff inhalation BID Qty: 10.2 6RF clindamycin HCl 300 mg capsule 300 mg PO TID Zyrtec 10 mg capsule 10 mg PO DAILY levalbuterol HCl [Xopenex] 0.63 mg/3 mL solution for nebulization 0.63 mg inhalation TID Qty: 72 2RF epinephrine [EpiPen] 0.3 mg/0.3 mL auto-injector 0.3 mg IM Q4H PRN (Reason: anaphylaxis) Qty: 2 2RF Xolair 150 mg/mL syringe 225 mg SUBCUT .every 2 weeks Qty: 1 11RF benzonatate 100 mg capsule 100 mg PO BID PRN (Reason: cough) Qty: 20 0RF guaifenesin 600 mg tablet extended release 12hr 600 mg PO Q12H PRN (Reason: congestion) Qty: 14 0RF Flonase Allergy Relief 50 mcg/actuation spray,suspension 2 spray intranasal DAILY PRN (Reason: nasal congestion) Qty: 16 0RF Rx Instructions: administer into each nostril Discharge Orders: Discharge ED (Routine); Ordered 06/12/24 Ordered By: Juan Dorsey Referrals: Antonella Oliveira DO [Primary Care Provider] - Patient Instructions: Opioid Safety, Pain Management Coding Level of Care Code ED [employer] Supervisor for Jessica Steward
[2024-06-12 03:35] LABS: Charge for UA Resulting for Rev
[2024-06-12 03:36] LABS: Alanine Aminotransferase 26 U/L (0-41); Albumin Level 4.7 g/dL (3.5-5.2); Alcohol Level 150 mg/dL (0-10); Alkaline Phosphatase 66 U/L (40-130); Anion Gap 20.4 (5-19); Aspartate Amino Transferase 25 U/L (0-40); Blood Urea Nitrogen 11 mg/dL (6-20); Carbon Dioxide 20 mmol/L (22-29); Chloride 102 mmol/L (98-107); Creatinine Clr Calc Pharmacy 151.2344; Globulin 2.8 g/dL (1.3-4.6); Glucose 113 mg/dL (65-115); Osmolality Calculated 288 mOsm/kg (285-295); Potassium 3.4 mmol/L (3.5-5.1); Sodium 139 mmol/L (136-145); Total Bilirubin 0.5 mg/dL (0.15-1.2); Total Protein 7.5 g/dL (6.6-8.7)
[2024-06-12 03:45] LABS: Bacteria Urine None Seen /hpf; Hyaline Casts Urine 0-4 /lpf; RBC Urine 0-2 /hpf (0-2); Squamous Epithelial Cell Urine 0-5 /hpf (0-5); WBC Urine 0-5 /hpf (0-5)
[2024-06-12 03:47] LABS: Amphetamines Screen Urine Negative (Negative); Barbiturates Screen Urine Negative (Negative); Benzodiazepines Screen Urine Negative (Negative); Cocaine Screen Urine Negative (Negative); Opiate Screen Urine Negative (Negative); PCP Screen Urine Negative (Negative); THC Screen Urine Negative (Negative)
[2024-06-12] MEDS: ipratropium-albuterol 3 mL Neb INHALATION (03:54)
[2024-06-12 04:11] LABS: Bilirubin Urine Negative (Negative); Blood Urine Negative (Negative); Glucose Urine UA Negative (Normal); Ketones Urine Negative (Negative); Leukocyte Esterase Urine Negative (Negative); Nitrate Urine Negative (Negative); Protein Urine Negative (Negative); Specific Gravity, Urine 1.008 (1.005-1.030); Urine Color Yellow (Yellow); pH Urine 6.5 (5-7)
[2024-06-12 04:12] LABS: Urine Appearance Clear (CLEAR)
== END 2024-06-12 04:43 | disposition home or self-care (01) ==
PROVIDERS: Emergency Provider Emergency Medicine; PCP Family Medicine
DX: F10.129 Alcohol abuse with intoxication, unspecified (principal); J45.909 Unspecified asthma, uncomplicated; F41.9 Anxiety disorder, unspecified; Z77.22 Contact with and (suspected) exposure to environmental tobacco smoke (acute) (chronic)
CPT/HCPCS: 80053; 80306; 80307; 81003; 81015; 85025; 93005; 94640; 99284